=== PATIENT | female | born 1975 | race Caucasian/White ===

== ENCOUNTER 2017-03-02 09:49 | Emergency (ER) | payer BC, OTHER ==
[~2017-03-02] VITALS: Ht 172.7 cm; Wt 89.0 kg
[2017-03-02 09:50] VITALS: Ht 172.7 cm; Wt 89.0 kg
[2017-03-02] MEDS ORDERED: SODIUM CHLORIDE 0.9% 1000ML 1,000 ML IV STA (10:02)
[2017-03-02] MEDS ORDERED: KETOROLAC TROMETHAMINE 30 MG/ML VIAL IV STA (10:02)
[2017-03-02] MEDS ORDERED: FAMOTIDINE 20MG/5ML IV PUSH IV STA (10:06)
[2017-03-02] MEDS ORDERED: GI COCKTAIL PO ONE (10:15)
[2017-03-02] MEDS ORDERED: FLUO20CA35 PO (10:23)
[2017-03-02] MEDS ORDERED: LEVO50TA6 PO (10:23)
[2017-03-02] MEDS ORDERED: FLUT0.15 INH (10:23)
[2017-03-02] MEDS ORDERED: HYDR12.55 PO (10:23)
[2017-03-02 10:25] LABS: BASO % 0.5 %; BASO ABS # 0.04 K/uL (0-0.2); COMPLETE YES; EOS % 0.9 %; HEMATOCRIT 43.8 % (37-47); IG% 0.4 %; LYMPH % 20.5 %; LYMPH ABS # 1.63 K/uL (1.2-3.4); MEAN CELL VOLUME 87.4 fL (80-100); MEAN CORPUSCULAR HEMOGLOBIN 29.3 pg (25-34); MEAN CORPUSCULAR HGB CONC 33.6 g/dl (32-36); MEAN PLATELET VOLUME 10.4 fL (7.4-10.4); MONO % 8.3 %; NEUT % 69.4 %; PLATELET COUNT 261 K/uL (130-400); RED BLOOD COUNT 5.01 M/uL (4.2-5.4); WHITE BLOOD COUNT 7.97 K/uL (4.8-10.8)
[2017-03-02] MEDS ORDERED: IBUP-1277 PO (10:25)
[2017-03-02] MEDS ORDERED: ASPI81CH PO (10:25)
[2017-03-02] MEDS ORDERED: CETI10TA10 PO (10:27)
[2017-03-02 10:29] VITALS: O2SAT 97
[2017-03-02] MEDS ORDERED: LIDOCAINE HCL 2% VISC SOLN 20 ML UDC ONE (10:36)
[2017-03-02] MEDS ORDERED: ALUMINUM/MAGNESIUM SUSP 30 ML UDC ONE (10:36)
[2017-03-02 10:41] LABS: BLOOD UREA NITROGEN 22 mg/dl (7-18); BUN/CREATININE RATIO 26.2 (10-20); CALCIUM 9.1 mg/dl (8.5-10.1); CARBON DIOXIDE 27 mmol/L (21-32); CHLORIDE 106 mmol/L (98-107); CREATININE 0.83 mg/dl (0.60-1.20); GLUCOSE 107 mg/dl (70-99); POTASSIUM 3.8 mmol/L (3.5-5.1); SODIUM 138 mmol/L (136-145)
--- NOTE | 2017-03-02 10:55 | DIAGNOSTIC IMAGING REPORT ---
CHEST ONE VIEW PORTABLE CLINICAL HISTORY: Chest pain. COMPARISON STUDY: No previous studies for comparison. FINDINGS: Lung lungs are normal. There is no consolidation. There is no pneumothorax or pleural effusion. Pulmonary vascularity is normal. Cardiomediastinal silhouette is normal. IMPRESSION: No acute cardiopulmonary findings. Electronically signed by: Jordan Norris M.D. 03/02/2017 10:53 AM Dictated Date/Time: 03/02/2017 10:52 AM
[2017-03-02] MEDS ORDERED: FAMO20TA11 PO (13:20)
[2017-03-02 13:32] VITALS: BP 101/70; PULSE 61; TEMP 36.5; O2SAT 100
--- NOTE | 2017-03-02 15:26 | EMERGENCY ROOM VISIT NOTE ---
History Report prepared by Kari[place]quelin: Georgia Shafer Under the Supervision of: Dr. Yassine Hassan D.O. First contact with patient: 09:51 Chief Complaint: CHEST PAIN Stated Complaint: CHEST PAIN History of Present Illness The patient is a 41 year old female who presents to the Emergency Room with complaints of persistent chest pain since 0300 this morning/today. She rates her pain as a 4/10 in severity and describes it as feeling "burning" in nature. Nothing seems to make it better or worse. When the pain started, she also experienced "tingling" in her arm, but states it has resolved. She denies any jaw pain or the chest pain radiating anywhere. She notes she experienced "heart burn" type pain this past week, and has been taking Pepcid for her discomfort. She has also altered between constipation and diarrhea for the past week. Patient denies diabetes, hypertension, hyperlipidemia, CAD, history of sudden at a young age, and smoking. She denies any recent long car trips, pain or swelling of the legs, or hemoptysis. The patient also denies headache, change in vision, fevers, shortness of breath, nausea, vomiting, pain with urination, and melena. The pain that she was experiencing this morning his a same pain that she has been feeling all day. Source of History: patient Onset: 299 this morning Position: chest Symptom Intensity: 4/10 Quality: burning Timing: other (persistent) Associated Symptoms: + diarrhea, No fevers, No headache, No SOB, No nausea, No vomiting, No melena, No urinary symptoms Review of Systems See HPI for pertinent positives & negatives. A total of 10 systems reviewed and were otherwise negative. Past Medical & Surgical Medical Problems: (1) GERD (gastroesophageal reflux disease) Social History Smoking Status: Never Smoker Alcohol Use: occasionally Drug Use: none Marital Status: Housing Status: lives with family Occupation Status: employed Current/Historical Medications Scheduled Aspirin (Aspirin Childrens), 4 TAB PO UD Cetirizine Hcl (Zyrtec), 10 MG PO QAM Famotidine (Pepcid), 20 MG PO DAILY Fluoxetine (Prozac), 20 MG PO QAM Hydrochlorothiazide (Hydrochlorothiazide), 1 TAB PO QAM Levothyroxine Sodium (Levothyroxine Sodium), 1 TAB PO QAM Scheduled PRN Fluticasone Propionate (Nasal) (Flonase Allergy Relief), 1 SPRAY INH BID PRN for Allergic Reaction Miscellaneous Medications Ibuprofen (Advil), 800 MG PO Allergies Coded Allergies: No Known Allergies (Verified , 03/02/17) Uncoded Allergies: N (Allergy, Unknown, 04/25/02) Physical Exam Vital Signs Date Time Temp Pulse Resp B/P (MAP) Pulse Ox O2 Delivery O2 Flow Rate FiO2 03/02/17 13:32 36.5 61 18 101/70 100 03/02/17 13:20 61 03/02/17 11:47 62 18 100 03/02/17 11:42 67 17 98 03/02/17 11:37 66 16 97 03/02/17 11:32 59 26 98 03/02/17 11:31 101/70 03/02/17 11:27 63 16 99 03/02/17 11:22 64 18 99 03/02/17 11:17 62 15 99 03/02/17 11:12 60 17 100 03/02/17 11:07 59 16 97 03/02/17 11:02 61 11 98 03/02/17 11:01 100/73 03/02/17 10:57 63 24 99 03/02/17 10:52 70 17 99 03/02/17 10:47 65 18 98 03/02/17 10:42 65 20 99 03/02/17 10:37 69 16 97 03/02/17 10:32 110/75 03/02/17 10:29 97 Room Air 03/02/17 10:19 63 16 03/02/17 10:09 74 03/02/17 10:05 98 Room Air 03/02/17 09:50 36.5 69 18 125/80 98 Room Air Physical Exam GENERAL: Sitting up in bed, alert, anxious appearing, well nourished, no distress, non-toxic EYE EXAM: normal conjunctiva. OROPHARYNX: no exudate, no erythema, lips, buccal mucosa, and tongue normal and mucous membranes are moist NECK: supple, no nuchal rigidity, no adenopathy, non-tender LUNGS: Clear to auscultation. Normal chest wall mechanics HEART: no murmurs, S1 normal and S2 normal ABDOMEN: abdomen soft, non-tender, normo-active bowel sounds, no masses, no rebound or guarding. BACK: Back is symmetrical on inspection and there is no deformity, no midline tenderness, no CVA tenderness. SKIN: no rashes and no bruising UPPER EXTREMITIES: upper extremities are grossly normal. Radial pulses are equal bilaterally. LOWER EXTREMITIES: No pitting edema. Calves are equal bilaterally. NEURO EXAM: Normal sensorium, cranial nerves II-XII intact, normal speech, no weakness of arms, no weakness of legs. Gross sensation intact. Medical Decision & Procedures ER Provider Diagnostic Interpretation: Radiology results as stated below per my review and the radiologist's interpretation: CHEST ONE VIEW PORTABLE CLINICAL HISTORY: Chest pain. COMPARISON STUDY: No previous studies for comparison. FINDINGS: Lung lungs are normal. There is no consolidation. There is no pneumothorax or pleural effusion. Pulmonary vascularity is normal. Cardiomediastinal silhouette is normal. IMPRESSION: No acute cardiopulmonary findings. Electronically signed by: Jordan Norris M.D. 03/02/2017 10:53 AM Laboratory Results 03/02/17 10:07 Red Blood Count 5.01, Mean Corpuscular Volume 87.4, Mean Corpuscular Hemoglobin 29.3, Mean Corpuscular Hemoglobin Concent 33.6, Mean Platelet Volume 10.4, Neutrophils (%) (Auto) 69.4, Lymphocytes (%) (Auto) 20.5, Monocytes (%) (Auto) 8.3, Eosinophils (%) (Auto) 0.9, Basophils (%) (Auto) 0.5, Neutrophils # (Auto) 5.54, Lymphocytes # (Auto) 1.63, Monocytes # (Auto) 0.66, Eosinophils # (Auto) 0.07, Basophils # (Auto) 0.04 03/02/17 10:07 Test 03/02/17 10:07 03/02/17 12:37 White Blood Count 7.97 K/uL (4.8-10.8) Red Blood Count 5.01 M/uL (4.2-5.4) Hemoglobin 14.7 g/dL (12.0-16.0) Hematocrit 43.8 % (37-47) Mean Corpuscular Volume 87.4 fL (80-100) Mean Corpuscular Hemoglobin 29.3 pg (25-34) Mean Corpuscular Hemoglobin Concent 33.6 g/dl (32-36) Platelet Count 261 K/uL (130-400) Mean Platelet Volume 10.4 fL (7.4-10.4) Neutrophils (%) (Auto) 69.4 % Lymphocytes (%) (Auto) 20.5 % Monocytes (%) (Auto) 8.3 % Eosinophils (%) (Auto) 0.9 % Basophils (%) (Auto) 0.5 % Neutrophils # (Auto) 5.54 K/uL (1.4-6.5) Lymphocytes # (Auto) 1.63 K/uL (1.2-3.4) Monocytes # (Auto) 0.66 K/uL (0.11-0.59) Eosinophils # (Auto) 0.07 K/uL (0-0.5) Basophils # (Auto) 0.04 K/uL (0-0.2) RDW Standard Deviation 43.3 fL (36.4-46.3) RDW Coefficient of Variation 13.5 % (11.5-14.5) Immature Granulocyte % (Auto) 0.4 % Immature Granulocyte # (Auto) 0.03 K/uL (0.00-0.02) D-Dimer 280 ug/L FEU (0-500) Anion Gap 5.0 mmol/L (3-11) Est Creatinine Clear Calc Drug Dose 102.0 ml/min Estimated GFR () 100.1 Estimated GFR (Non- 86.4 BUN/Creatinine Ratio 26.2 (10-20) Calcium Level 9.1 mg/dl (8.5-10.1) Troponin I < 0.015 ng/ml (0-0.045) Laboratory results per my review. Medications Administered Medications (Trade) Dose Ordered Sig/Quinten Route Start Time Stop Time Status Last Admin Dose Admin Sodium Chloride 1,000 ml @ 999 mls/hr Q1H1M STAT IV 03/02/17 10:02 03/02/17 11:02 DC 03/02/17 10:28 999 MLS/HR Ketorolac Tromethamine (Toradol Inj) 30 mg NOW STAT IV 03/02/17 10:02 03/02/17 10:05 DC 03/02/17 10:23 30 MG Famotidine (Pepcid 20mg Iv Push) 20 mg ONE STAT IV 03/02/17 10:06 03/02/17 10:07 DC 03/02/17 10:23 20 MG Al Hydroxide/Mg Hydroxide (Maalox Susp) 30 ml STK-MED ONCE .ROUTE 03/02/17 10:36 03/02/17 10:37 DC 03/02/17 10:39 30 ML ECG Indication: chest pain Rate (beats per minute): 43 Rhythm: sinus rhythm Findings: no ectopy, other (normal axis) ED Course ED COURSE: Vital signs were reviewed and showed normal vital signs. The patients medical record was reviewed The above diagnostic studies were performed and reviewed. ED treatments and interventions as stated above. 0957: The patient was evaluated in room B9. A complete history and physical examination was performed. 1002: Toradol 30 mg IV, NSS 1000 ml @ 999 mls/hr IV. 1006: Famotidine 20 mg IV. 1036: Maalox Susp 30 ml PO. 1325: Upon reevaluation, the patient is feeling well and is ready to go home. I discussed my findings with the patient and she understands and agrees with the treatment plan. Based on the patients age, coexisting illnesses, exam and lab findings the decision to treat as an outpatient was made. The patient remained stable while under my care. The patient appeared well at the time of discharge. Medical Decision Differential diagnoses includes but is not limited to acute coronary syndrome, myocardial infarction, pericarditis, pulmonary embolus, aortic dissection, pneumonia, pneumothorax, musculoskeletal, shingles, esophageal. Patient is a 41-year-old female who presents to ER for chest pain which started at 3 AM this morning. She has had this off and on all week. It is nonexertional. Limited cardiac/PE risk factors. D-dimer was negative and a low risk patient. This was not explored any further. CBC along BMP was unremarkable. Troponin was negative 9 hours from pain. [place] the troponin was also unchanged. BMP was unremarkable. Chest x-ray negative. Patient was given a GI cocktail and Toradol with minimal relief. Based on symptoms I do not believe that this is cardiac. I explained that based on the Heart score she is a low risk and this would put her around 1% for MACE. This is explained at length to the patient. Following this she was discharged follow-up with PCP as an outpatient. Discussed with Pt concerning signs and symptoms to watch out for. Pt was instructed to follow up with their PCP and discussed with the patient their option to return to the ED at anytime for persistent or worsening symptoms. The appropriate anticipatory guidance and out-patient management, including indications for return to the emergency department, were explained at length to the patient and understood. Medication Reconcilliation Current Medication List: was personally reviewed by me Blood Pressure Screening Patient's blood pressure: Normal blood pressure Blood pressure disposition: Did not require urgent referral Impression Primary Impression: Chest pain Scribe Attestation The scribe's documentation has been prepared under my direction and personally reviewed by me in its entirety. I confirm that the note above accurately reflects all work, treatment, procedures, and medical decision making performed by me. Departure Information Dispostion Home / Self-Care Prescriptions Famotidine (Pepcid) 20 Mg Tab 20 MG PO DAILY, #20 TAB Prov: Yassine Hassan, DO 03/02/17 Referrals Mahnaz Bell M.D. (PCP) Patient Instructions ED Muscle Pain Leg Cramps, My [facility] Additional Instructions Please follow up with your primary care doctor with in the next 24 hours. Any worsening of your symptoms, please return to the ED immediately. This includes any fevers greater than 100.4, worsening pain, chest pain, shortness breath, persistent nausea, vomiting, unable to eat or drink, or any other concerning signs or symptoms from your standpoint. Please take Motrin or Tylenol as needed for pain. Please take Pepcid as prescribed. Problem Qualifiers Primary Impression: Chest pain Chest pain type: unspecified Qualified Codes: R07.9 - Chest pain, unspecified
== END 2017-03-02 13:33 | disposition home or self-care (01) ==
LOC: C.EDB 09:50
DX: R07.9 Chest pain, unspecified (principal); K21.9 Gastro-esophageal reflux disease without esophagitis; Z79.82 Long term (current) use of aspirin